=== PATIENT | female | born 1990 | race American Indian/Alaskan Native ===

== ENCOUNTER 2022-05-30 08:58 | Emergency (ER) | payer OTHER ==
--- NOTE | 2022-05-30 09:24 | Emergency Department Report ---
HPI - General Chief Complaint: Allergic Reaction Time Seen by Provider: 05/30/22 09:08 - HPI HPI: Room 23 The patient is a 31-year-old female present with a chief complaint of allergic reaction. Patient states she had an I&D performed on her right lower extremity started on Bactrim 05/22/20002009. Patient states for the past 3 days she has noticed she has been itching for the past 3 days. Patient states she then developed throat pain/tightness and yesterday developed an urticarial rash. Patient denies shortness of breath. ED Past Medical Hx - Past Medical History Previous Medical History?: No - Surgical History Additional Surgical History: I&d abscess right leg, tonsillectomy - Family History Family history: no significant - Social History Smoking Status: Never Smoker Substance Use Type: None (Denies illicit drug use), Alcohol (Occasional) - Medications Home Medications: Home Medications Medication Instructions Recorded Confirmed Last Taken Type EPINEPHrine [Epipen 2-Alon] 0.3 mg IM ONCE PRN #0.6 ml 05/30/22 Unknown Rx Famotidine [Pepcid] 20 mg PO BID #6 tablet 05/30/22 Unknown Rx Prednisone [predniSONE 10 mg 10 mg PO .TAPER #1 05/30/22 Unknown Rx (6-Day Pack, 21 Tabs)] diphenhydrAMINE [Benadryl CAP] 50 mg PO Q6HR #24 capsule 05/30/22 Unknown Rx levoFLOXacin [Levaquin TAB] 500 mg PO QDAY #3 tablet 05/30/22 Unknown Rx ED Review of Systems ROS: Stated complaint: ALLERGIC REACTION Other details as noted in HPI Constitutional: no symptoms reported Eyes: denies: eye pain ENT: denies: throat pain Respiratory: no symptoms reported Cardiovascular: denies: chest pain Endocrine: no symptoms reported Gastrointestinal: denies: abdominal pain Musculoskeletal: denies: back pain Skin: rash, pruritus Neurological: denies: headache Physical Exam - Physical Exam Vital Signs: Vital Signs 05/30/22 09:04 Temperature 98.3 F Pulse Rate 97 H Respiratory 20 Rate Blood Pressure 111/62 O2 Sat by Pulse 98 Oximetry Physical Exam: GENERAL: The patient is well-developed well-nourished female lying on stretcher not appearing to be in acute distress. [] HEENT: Normocephalic. Atraumatic. Extraocular motions are intact. Patient has moist mucous membranes. NECK: Supple. Trachea midline. No stridor CHEST/LUNGS: Clear to auscultation. There is no respiratory distress noted. HEART/CARDIOVASCULAR: Regular. There is no tachycardia. There is no gallop rub or murmur. ABDOMEN: Abdomen is soft, nontender. Patient has normal bowel sounds. There is no abdominal distention. SKIN: There is an urticarial rash present on the left upper extremity. There is no edema. There is no diaphoresis. NEURO: The patient is awake, alert, and oriented. The patient is cooperative. The patient has no focal neurologic deficits. The patient has normal speech. GCS 15 MUSCULOSKELETAL: There is no evidence of acute injury. ED Course Vital Signs 05/30/22 09:04 Temperature 98.3 F Pulse Rate 97 H Respiratory 20 Rate Blood Pressure 111/62 O2 Sat by Pulse 98 Oximetry ED Medical Decision Making - Radiology Data Radiology results: report reviewed (Lateral soft tissue neck x-ray), image reviewed (Lateral soft tissue neck x-ray) interpreted by me: Lateral soft tissue neck [id number] patent. No prevertebral swelling appreciated. Normal epiglottis. [facility] [address] [place] [address] XRay Report Signed Patient: BELLE ALVA MR#: [id number] : 1990 Acct:[id number] Age/Sex: 31 / F ADM Date: 05/30/22 Loc: ED Attending Dr: Ordering Physician: JOSEMANUEL PINEDA MD Date of Service: 05/30/22 Procedure(s): XR neck soft tissue Accession Number(s): [id number] cc: JOSEMANUEL PINEDA MD Fluoro Time In Minutes: SOFT TISSUE NECK HISTORY: Allergic reaction, throat tight COMPARISON: None. TECHNIQUE: AP and lateral view(s) of the neck obtained. FINDINGS: Epiglottis: No significant abnormality. Airway: No significant abnormality. Retropharyngeal soft tissues: No significant abnormality. Bones: No significant abnormality. Additional findings: None. IMPRESSION: 1. No significant abnormality. Signer Name: Jim Rooney MD Signed: 05/30/2022 10:57 AM Workstation Name: [id number] Transcribed By: ATTILA Dictated By: Jim Rooney MD Electronically Authenticated By: Jim Rooney MD Signed Date/Time: 05/30/221056 DD/ 56 TD/TT: - Differential Diagnosis Allergic reaction Critical care attestation.: If time is entered above; I have spent that time in minutes in the direct care of this critically ill patient, excluding procedure time. ED Disposition Clinical Impression: Acute allergic reaction Disposition: HOME / SELF CARE / HOMELESS Is pt being admited?: No Does the pt Need Aspirin: No Condition: Stable Instructions: How to Use an Auto-Injector Pen Additional Instructions: Return to the emergency department should you develop worsening symptoms, inability to tolerate food or liquids, high fever or any other concerns Prescriptions: diphenhydrAMINE [Benadryl CAP] 50 mg PO Q6HR #24 capsule EPINEPHrine [Epipen 2-Alon] 0.3 mg IM ONCE PRN #0.6 ml PRN Reason: Anaphylaxis levoFLOXacin [Levaquin TAB] 500 mg PO QDAY #3 tablet Famotidine [Pepcid] 20 mg PO BID #6 tablet Prednisone [predniSONE 10 mg (6-Day Pack, 21 Tabs)] 10 mg PO .TAPER #1 Referrals: [facility] [Provider Group] - 3-5 Days Time of Disposition: 11:21
[2022-05-30] MEDS ORDERED: diphenhydrAMINE 50 MG/ML VIAL IV ONE (09:51)
[2022-05-30] MEDS ORDERED: FAMOTIDINE 20 MG/2 ML INJ IV ONE (09:51)
[2022-05-30] MEDS ORDERED: methylPREDNISolone Sod Succinate 125 MG/2 ML INJ IV ONE (09:51)
--- NOTE | 2022-05-30 11:01 | XRay Report ---
SOFT TISSUE NECK HISTORY: Allergic reaction, throat tight COMPARISON: None. TECHNIQUE: AP and lateral view(s) of the neck obtained. FINDINGS: Epiglottis: No significant abnormality. Airway: No significant abnormality. Retropharyngeal soft tissues: No significant abnormality. Bones: No significant abnormality. Additional findings: None. IMPRESSION: 1. No significant abnormality. Signer Name: Jim Rooney MD Signed: 05/30/2022 10:57 AM Workstation Name: [id number]
[2022-05-30 11:36] VITALS: BP 109/53
== END 2022-05-30 12:06 | disposition home or self-care (01) ==
LOC: ED 08:58
DX: T78.40XA Allergy, unspecified, initial encounter (principal); Z88.1 Allergy status to other antibiotic agents; Z79.899 Other long term (current) drug therapy; Z72.89 Other problems related to lifestyle; X58.XXXA Exposure to other specified factors, initial encounter
CPT/HCPCS: 70360; 96374; 96375; 99283; J1200; J2930; J3490